=== PATIENT | male | born 1975 | race Two or more races ===

== ENCOUNTER 2022-12-16 11:10 | Emergency (ER) | payer OTHER ==
[~2022-12-16] VITALS: Ht 170.2 cm; Wt 67.9 kg
[2022-12-16 11:20] VITALS: PULSE 58; RESP 20; O2SAT 99
[2022-12-16] MEDS ORDERED: ONDANSETRON HCL 4 MG/2 ML VIAL IV ONE (11:45)
[2022-12-16] MEDS ORDERED: MORPHINE SULFATE 4 MG/ML SYR/VIAL IV ONE (11:45)
[2022-12-16] MEDS ORDERED: IBUP-1456 PO (13:19)
[2022-12-16] MEDS ORDERED: ACET-1304 PO (13:19)
[2022-12-16] MEDS ORDERED: CEPH500T PO (13:19)
[2022-12-16 14:14] VITALS: BP 111/77; PULSE 63; RESP 16; O2SAT 97
== END 2022-12-16 14:25 | disposition home or self-care (01) ==
LOC: ER 11:10
DX: S67.21XA Crushing injury of right hand, initial encounter (principal); Z79.1 Long term (current) use of non-steroidal anti-inflammatories (NSAID); Z79.899 Other long term (current) drug therapy; W22.8XXA Striking against or struck by other objects, initial encounter; Y93.89 Activity, other specified; Y92.89 Other specified places as the place of occurrence of the external cause; Y99.8 Other external cause status
CPT/HCPCS: 29125; 73090; 73110; 73130; 96374; 96375; 99285; J2270; J2405